=== PATIENT | male | born 1985 | race Caucasian/White ===

== ENCOUNTER 2025-09-04 22:08 | Emergency (ER) | payer BC ==
[2025-09-04] MEDS ORDERED: HYDROcodone/Acetaminophen 5/325 mg Tablet ONE (22:48)
== END 2025-09-05 00:58 | disposition home or self-care (01) ==
LOC: ERS 22:08
DX: S06.0XAA Concussion with loss of consciousness status unknown, initial encounter (principal); V89.2XXA Person injured in unspecified motor-vehicle accident, traffic, initial encounter
CPT/HCPCS: 70450; 71045; 72125; 90715; G0390